=== PATIENT | male | born 1940 | race Caucasian/White ===

== ENCOUNTER 2024-11-17 16:05 | Emergency (ER) | payer OTHER ==
[2024-11-17 17:01] VITALS: BP 132/58; PULSE 58; RESP 18; TEMP 97.4; BMI 25.1
== END 2024-11-17 17:08 | disposition home or self-care (01) ==
LOC: FER 16:05
DX: S51.811A Laceration without foreign body of right forearm, initial encounter (principal); X58.XXXA Exposure to other specified factors, initial encounter
CPT/HCPCS: 99283-25